=== PATIENT | male | born 1965 | race Caucasian/White ===

== ENCOUNTER 2017-02-08 10:25 | Emergency (ER) | payer MEDICARE, OTHER ==
[2017-02-08] MEDS ORDERED: Aspirin Low Dose CHEW TAB* 81 MG PO ONE (10:42)
--- NOTE | 2017-02-08 10:48 | UC ---
Cardiac HPI - HPI Summary HPI Summary: The patient comes in today for: 1. Chest pain: Onset: 2-3 hours. Palliative/provocative: Noting makes it better or worse. Quality: Sharp, "like something is stuck there." Region: Chest, anterior Severity: "Very bad." Time: Constant. Associated symptoms: Nausea/vomiting: Positive. 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 - Allergy/Home Medications Allergies/Adverse Reactions: Allergies Allergy/AdvReac Type Severity Reaction Status Date / Time Adhesive Tape Allergy Rash Verified 02/08/17 10:49 Latex Allergy Unknown Verified 02/08/17 10:49 Reaction Details Insulin AdvReac GI Upset Verified 02/08/17 10:49 Lisinopril AdvReac Abdominal Verified 02/08/17 10:49 Pain Statins AdvReac Unknown Verified 02/08/17 10:49 Reaction Details Home Medications: Home Medications NK [No Home Medications Reported] 02/08/17 [History Confirmed 02/08/17] PMH/Surg Hx/FS Hx/Imm Hx Previously Healthy: No Endocrine History: Diabetes, Dyslipidemia Cardiovascular History: Hypertension - Surgical History Surgical History: Yes Surgery Procedure, Year, and Place: ROTATOR CUFF REPAIR, COLONOSCOPY - Family History Known Family History: Positive: Cardiac Disease, Diabetes - Social History Alcohol Use: None Substance Use Type: None Smoking Status (MU): Current Every Day Smoker Type: Cigarettes Amount Used/How Often: 1 PPD Review of Systems Constitutional: Negative Skin: Negative Eyes: Negative ENT: Negative Respiratory: Negative Cardiovascular: Negative Genitourinary: Negative All Other Systems Reviewed And Are Negative: Yes Physical Exam Triage Information Reviewed: Yes Appearance: Ill-Appearing - He keeps his hand against his left anterior chest. Vital Signs Reviewed: Yes Eyes: Positive: Conjunctiva Clear. Negative: Discharge ENT: Positive: Hearing grossly normal. Negative: Pharyngeal erythema, Nasal congestion, Nasal drainage, TM bulging, TM dull, TM red, Tonsillar swelling, Tonsillar exudate Dental: Negative: Gross Decay/Caries @, Dental Fracture @ Neck: Positive: Supple, Nontender, No Lymphadenopathy. Negative: Nuchal Rigidity Respiratory: Positive: Chest non-tender, Lungs clear, No respiratory distress, No accessory muscle use. Negative: Crackles, Wheezing Cardiovascular: Positive: RRR, No Murmur Abdomen Description: Positive: Nontender, No Organomegaly, Soft. Negative: Distended, Guarding Musculoskeletal: Positive: Strength Intact, ROM Intact, No Edema Neurological: Positive: Alert, Muscle Tone Normal Psychological: Positive: Age Appropriate Behavior, Consolable Skin: Negative: rashes, breakdown Diagnostics - Laboratory Diagnostic Studies Completed/Ordered: EGK: Rate: 62. Rhythm: Sinus. Ectopy: NOne. Edwards: 30 degrees, +. Acute changes: ST elevations in II, III, AVF, ST depression V2 - Assessment/Plan Course Of Treatment: Patient had oxygen, 324 mg aspirin, and IV access attempted , unsuccessful. - Clinical Impression Provider Diagnoses: Inferior/RV STEMI - Physician Notifications Discussed Patient Care With: Bolivar Hernandez MD Time Discussed With Above Provider: 10:55 Discharge - Discharge Plan Condition: Stable Disposition: TRANS HIGHER LVL OF CARE FAC
[2017-02-08 10:54] VITALS: BP 150/82
[2017-02-08] MEDS ORDERED: VERAPAMIL 2.5 MG/ML 4 ML VIAL ONE (11:10)
[2017-02-08] MEDS ORDERED: Lidocaine 1% INJ* 10 MG/ML 30 ML SDV ONE ×2 (11:10→11:28)
[2017-02-08] MEDS ORDERED: Heparin 2 UNITS/ML IVPREMIX* 3,000 ML IV ONE (11:10)
[2017-02-08] MEDS ORDERED: Midazolam* 1 MG/ML 5 ML VIAL (5 MG) ONE (11:10)
[2017-02-08] MEDS ORDERED: Heparin(*) 1000 UNIT/ML 10 ML VIAL CATH LAB IV ONE (11:10)
[2017-02-08] MEDS ORDERED: nitroGLYCERIN DRIP* 250 ML ONE (11:10)
[2017-02-08] MEDS ORDERED: Iohexol 350 (CONTRAST) 200 ML MDV IV ONE (11:10)
[2017-02-08] MEDS ORDERED: fentaNYL* 50 MCG/ML 2 ML VIAL (100 MCG VIAL) ONE (11:10)
== END 2017-02-08 10:50 | disposition short-term general hospital (02) ==
LOC: UCEAST 10:25
DX: I21.19 ST elevation (STEMI) myocardial infarction involving other coronary artery of inferior wall (principal); E11.8 Type 2 diabetes mellitus with unspecified complications; E78.5 Hyperlipidemia, unspecified; I10 Essential (primary) hypertension; Z72.0 Tobacco use
CPT/HCPCS: 93005; 99214; A9270-GY; G0463; J1644; J2001; J2250; J3010

== ENCOUNTER 2017-02-08 11:14 | Inpatient (IN) | payer MEDICARE, OTHER ==
[2017-02-08] MEDS ORDERED: fentaNYL* 50 MCG/ML 2 ML VIAL (100 MCG VIAL) ONE (11:39)
[2017-02-08] MEDS ORDERED: Iohexol 350 (CONTRAST) 200 ML MDV IV ONE (12:00)
[2017-02-08 12:25] LABS: Hematocrit 52 % (42-52); Hemoglobin 17.1 g/dl (14.0-18.0); Mean Corpuscular HGB Conc 33 g/dl (31-36); Mean Corpuscular Hemoglobin 27 pg (27-31); Mean Corpuscular Volume 82 fL (80-94); Mean Platelet Volume 11 um3 (7.4-10.4); Red Cell Distribution Width 14 % (10.5-15); White Blood Count 9.2 10^3/ul (3.5-10.8)
[2017-02-08 12:37] LABS: Albumin 3.9 g/dL (3.2-5.2); BUN/Creatinine Ratio 17.6 (8-20); Calcium 8.7 mg/dL (8.6-10.3); EGFR African American 142.8 (>60); EGFR Non-African American 111.1 (>60); Globulin 2.8 g/dL (2-4); Potassium 4.5 mmol/L (3.5-5.0); Total Bilirubin 0.4 mg/dL (0.2-1.0); Total Protein 6.7 g/dL (6.4-8.9)
[2017-02-08 12:42] LABS: Troponin I 0.23 ng/mL (<0.04)
[2017-02-08] MEDS ORDERED: Nitroglycerin TAB 0.4 MG* 0.4 MG TAB SL PRN (13:47)
[2017-02-08] MEDS ORDERED: Acetaminophen TAB* 325 MG PO PRN (13:56)
[2017-02-08] MEDS ORDERED: Zolpidem TAB* 5 MG PO PRN (13:56)
[2017-02-08] MEDS ORDERED: Ticagrelor* 90 MG TAB PO ONE (13:56)
[2017-02-08] MEDS ORDERED: Metoprolol Tartrate TAB* 25 MG PO SCH (14:00)
[2017-02-08] MEDS ORDERED: NS 0.9% 1000 ML* 1,000 ML IV SCH (14:00)
[2017-02-08] MEDS ORDERED: Dextrose 50% Syringe 50 ML* 25 GM/50 ML SYRINGE IV PUSH PRN (16:16)
[2017-02-08] MEDS: Metoprolol Tartrate TAB* 25 MG PO SCH (16:43)
--- NOTE | 2017-02-08 17:34 | HP ---
CC: Dr. Henderson; Dr. Cardozo HISTORY AND PHYSICAL: DATE OF ADMISSION: 02/08/17 PRIMARY CARE PHYSICIAN: Dr. Henderson. HISTORY OF PRESENT ILLNESS: A 51-year-old uncontrolled diabetic, presenting to [facility] care with an acute inferior wall ST elevation infarct. He is fairly knowledgeable about his medical history. He relates that he is intolerant of all insul ins because of what I would consider fairly atypical side effect such as GI upset and GI symptoms. He also relates that he is unable to take metformin or glipizide because he is unable to walk within a week of taking them. He relates that Dr. Henderson has referred him to a diabetic specialist in [facility], but he has not seen him yet. He has been on no medical management for his diabetes, typically ru ns blood sugars in the 300s or higher. He and his are under the impression that there are appa rently no medical options for treatment of his diabetes. He has no previous cardiac history. He is a smoker with obesity and hyperlipidemia. This morning, he started to have severe chest discomfort, presented to urgent care where he was found to have an a cute inferior wall ST elevation infarct by EKG at 1037 hours where he has sinus rhythm with a rate o f 62, incomplete right bundle-branch block, ST elevation in [address] depression in 1 and aV L, as well as V2 through V6. Previous EKG, 08/07/11, showed only a nonspecific IVCD. He was kaz t directly to the dental laboratory assistant as an ER bypass STEMI patient and underwent emergent catheterization. PAST MEDICAL HISTORY: 1. Obesity. 2. Diabetes, apparently uncontrolled. 3. Dyslipidemia. 4. Tobacco use. 5. Obstructive sleep apnea. HOME MEDICATIONS: None. ALLERGIES: Reportedly ADHESIVE TAPE, LASIX, ALL INSULINS, LISINOPRIL, and STATINS, although he reca lls taking only Lipitor and no others. FAMILY HISTORY: Positive for premature coronary disease. SOCIAL HISTORY: He is . He smokes a pack per day. REVIEW OF SYSTEMS: General: No fever. No weight loss. 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 GI: He d enies any history of GI bleeding. Does not take aspirin regularly. Circulatory: No claudication. PHYSICAL EXAMINATION VITAL SIGNS: Initial dental laboratory assistant BP 86/42 with a repeat 151/96. Heart rate 60s, sinus rhythm. No ect opy. HEENT: Unremarkable without xanthelasma. NECK: JVP unremarkable. No thyromegaly. Trachea midline. No carotid bruits. LUNGS: Clear laterally to auscultation. No rales. No wheezes. No rhonchi. HEART: [place] and RV not palpable. Normal heart sounds. No gallop, murmur, or rub. ABDOMEN: Obese, nontender. Normal bowel sounds. I cannot feel the aorta. Femoral pulses 2+. He h as no abdominal bruit or femoral bruits. EXTREMITIES: Radial pulses 2+. Pedal pulses 2+. He has no cyanosis, clubbing, or edema. SKIN: Warm and perfused. LABORATORY DATA: During the catheterization, labs returned with unremarkable CBC, normal creatinin e of 0.74 with normal electrolytes, random blood sugar high at 366. First troponin 0.23. Alkaline p hosphatase elevated at 117 with normal SGOT and SGPT. LDL high at 157. BNP 36. IMPRESSION: 1. Acute inferior wall ST elevation infarct. He underwent emergent catheterization as an ER bypass patient. 2. Diabetes, uncontrolled and untreated. I find his history fairly bizarre. The alleged allergic symptoms to numerous INSULINS are quite atypical. His side effects to metformin and glipizide are a lso quite unusual. He is not on aspirin or any other medicines. It seems very unlikely to me that he has not been recommended to take aspirin. I wonder if there is a large component of medication n oncompliance here. In any case, I will ask the hospitalist service to help with management of his u ncontrolled hyperglycemia at least while he is in the hospital. 3. Dyslipidemia: Even though he claims to have an allergy to STATIN, he does not recall being on Z ocor. He is willing to try it. We will start with 20 mg daily. 4. Tobacco use: We will encourage him not to continue smoking. 5. Obesity. [id number]/[facility] #: [id number]
--- NOTE | 2017-02-08 18:07 | CONS ---
CC: Dr. Henderson; Dr. Cardozo * CONSULTATION REPORT: DATE OF CONSULT: 02/08/17 PRIMARY CARE PROVIDER: Dr. Henderson. PHYSICIAN REQUESTING CONSULT: Dr. Cardozo from Interventional Cardiology. CHIEF COMPLAINT: Chest pain. HISTORY OF PRESENT ILLNESS: Mr. Watson is a 51-year-old male with a history of obesity, diabetes, hypertension, dyslipidemia, who was brought in as ST elevation [place] from [facility]. The patient had an emergent cardiac catheterization performed and 2 stents placed at critical lesion into the circumflex artery. Postoperatively, the patient is doing well. He has a history of diabetes for which he has not been taking any medications and no INSULIN stating that he is ALLERGIC to all the medications previously tried including GLIPIZIDE, METFORMIN , and "ALL KINDS OF INSULIN." Dr. Cardozo has asked Medicine to see the patient in consultation in regards to diabetic management. PAST MEDICAL HISTORY: 1. Obesity. 2. Diabetes type 2. 3. Hypertension. 4. Dyslipidemia. 5. Six surgeries in the right shoulder. 6. History of peripheral neuropathy. The patient stated that his ambulation was very poor several years ago and he had been undergoing rehabilitation and currently, he is able to walk without any walker. CURRENT MEDICATIONS: None. The patient has been not taking any of his regular medications for the past 6 months due to side effects. ALLERGIES: Include ADHESIVE TAPE which causes rash. LATEX, also rash. INSULIN , GI upset. LISINOPRIL, GI upset. STATINS, GI upset. FAMILY HISTORY: Positive for father who in his 80s from prostate cancer. Mother of disseminated cancer of unknown primary. SOCIAL HISTORY: The patient has smoked 1 pack per day ever since he turned 14. He denies any alcohol use. His surrogate is his , Nithya. The patient currently is in disability due to problems with peripheral neuropathy and right shoulder problems. REVIEW OF SYSTEMS: Please see history of present illness. The patient stated that his sugars had been in the 400 range ever since he quit taking his insulin. The patient stated that in the past he would have severe abdominal cramps with METFORMIN, GLIPIZIDE, and INSULIN and his doctor told him to stop all the medications. He also stated that he has stomach cramps with LISINOPRIL and that was discontinued also. He also complains of polydipsia and polyuria in the past 6 months. He has not had a chest pain for the past several months, but today, in the morning, he developed severe substernal chest pain that lasted several hours until his cardiac catheterization was performed earlier on today. He states that he has good exercise tolerance and he does a lot of yard work. He denies any dyspnea on exertion or chest pain with exertion prior to the cardiac catheterization. He does have history of problems with the right shoulder after multiple surgeries. All the remaining 14 systems were reviewed with the patient and were otherwise negative. PHYSICAL EXAM: Blood pressure 118/80, heart rate of 67 and regular, respiratory rate 20, oxygen saturation 99% on room air, and temperature of 97.5. General: The patient is a pleasant 51-year-old male with a BMI of 38.5 kg/sq. m. The patient is in no acute distress. Alert, awake, and oriented x3. HEENT: Head: Atraumatic, normocephalic. Eyes: Pupils equal, reactive to light and accommodation. Oropharynx clear. Mucosa moist. Neck: Supple. No JVD, no bruit bilaterally. Cardiovascular: Regular rate and rhythm. No murmur. Respiratory: Clear to auscultation bilaterally. Abdomen: Protuberant , soft, nontender. Bowel sounds present in all 4 quadrants. Extremities: There is no edema. Pulses are +2 bilaterally. No clubbing or cyanosis. On evaluation of the skin, the patient's puncture site from the right radial access for his cardiac catheterization is covered with Tegaderm and there is no evidence of hematoma. Neuro Evaluation: Speech clear. Cranial nerves II through XII grossly intact. Motor strength is 5/5 bilaterally. DIAGNOSTIC STUDIES/LAB DATA: Show a white blood cell count of 9.2, hemoglobin 17.1, hematocrit of 52, MCV of 82, and platelets of 154. Sodium 135, potassium 4.5, chloride 102, carbon dioxide 23, BUN 13, creatinine 0.74. Liver function tests showed alkaline phosphatase of 117, ALT of 35, AST of 24. The patient's troponin was 0.23. LDL was 157. The patient's EKG performed prior to cardiac catheterization showed ST elevation [place] in the inferior wall. ASSESSMENT AND PLAN: A 51-year-old male status post ST elevation myocardial infarction with 2 stents into the circumflex artery. The patient currently is placed on aspirin and Brilinta. The treatment is going to be continued as per Interventional Cardiology. In regards to the patient's diabetes: At this point, I believe that METFORMIN could cause GI upset and diarrhea. At this point, the most appropriate in the clinical setting in this patient with post catheterization with sugars in the 300s is to start the patient on insulin. I had a long discussion with the patient about how low is the possibility of the patient having GI upset from injections of insulin. At this point, the patient is agreeing to trying Lantus and insulin lispro sliding scale. I will ask diabetic education and nutrition to see the patient in consultation. For DVT prophylaxis, I will defer to the primary service. The patient is at low risk. In regards to history of dyslipidemia, the patient has history of most likely neuropathy or maybe myopathy due to STATINS in the past. At this point, he was not going to be placed on a STATIN unless the primary cardiology service decides to do so. The patient's code status is full and the patient's surrogate is his . TIME SPENT: Approximately 50 minutes was spent on consultation of this patient , more than half that time was spent [id number] with the patient during the interview and physical exam. [id number]/[facility] #: [id number] PANCHO
[2017-02-08] MEDS: Insulin LISPRO* 1 UNITS UNIT SUBCUT SCH ×2 (18:14→21:25)
[2017-02-08] MEDS: Insulin GLARGINE(*) 1 UNITS UNIT SUBCUT SCH (18:14)
[2017-02-08] MEDS ORDERED: LORazepam TAB(*) 1 MG ONE (19:21)
[2017-02-08] MEDS ORDERED: LORazepam TAB(*) 1 MG PO ONE (20:00)
[2017-02-08] MEDS ORDERED: Ondansetron INJ* 2 MG/ML VIAL ONE (21:23)
[2017-02-08] MEDS: Ticagrelor* 90 MG TAB PO SCH (21:25)
[2017-02-08] MEDS ORDERED: Ondansetron INJ* 2 MG/ML VIAL IV PRN (21:26)
[2017-02-08] MEDS ORDERED: Atropine SYRINGE* 0.1 MG/ML 10 ML SYRINGE (1 MG) ONE (22:54)
[2017-02-09] MEDS: Metoprolol Tartrate TAB* 25 MG PO SCH ×2 (00:18→08:49)
[2017-02-09 05:52] LABS: BUN/Creatinine Ratio 25.4 (8-20); EGFR Non-African American 133.7 (>60); Potassium 4.3 mmol/L (3.5-5.0)
[2017-02-09] MEDS: Aspirin Low Dose CHEW TAB* 81 MG PO SCH (08:48)
[2017-02-09] MEDS: Insulin LISPRO* 1 UNITS UNIT SUBCUT SCH ×4 (08:48→20:35)
[2017-02-09] MEDS: Ticagrelor* 90 MG TAB PO SCH ×2 (08:49→19:50)
[2017-02-09] MEDS ORDERED: NS 0.9% 1000 ML* 1,000 ML IV SCH (09:00)
[2017-02-09] MEDS ORDERED: Insulin GLARGINE(*) 1 UNITS UNIT SUBCUT ONE (09:00)
--- NOTE | 2017-02-09 09:37 | ECHO ---
Patient: ROSI MONTALVO [facility] Rec#: [id number] : 1965 Date: 02/09/2017 Age: 51y Height: 170.2 cm / 67.0 in Weight: 115.7 kg / 255.0 lbs Sex: M BSA: 2.2 Room#: ICU 11 Admit Date#: 02/08/2017 Type: Inpatient Referring: Kristy Cardozo MD Reading: Dylan Godinez MD Cabinet And Trim Installer: Trudi Mullins RN RDCS CC: Cam Henderson MD Transthoracic Echocardiogram Indication: STEMI, S/P PCI BP: 117/56 HR: 50 Rhythm: Bradycardia Findings History: DM, HLD, obesity, CHERIE, smoker Technical Comments: The study is technically limited due to patient body habitus. The study is technically limited due to the patient's smoking history. Completed at 0850. Left Ventricle: The left ventricular chamber size is normal. Mild concentric left ventricular hypertrophy is observed. There is increased basal septal hypertrophy noted without evidence of an increased gradient across the left ventricular outflow tract. There is a focal wall motion abnormality present. There is mild to moderately decreased left ventricular systolic function. The estimated ejection fraction is 40-45%. closer to 45%. Normal left ventricular diastolic filling is observed. The basal inferolateral, basal inferior, basal inferoseptal, mid inferior, mid inferoseptal, and apical inferior wall segments are hypokinetic (score 2). Overall wallmotion score index is 1.38 Left Atrium: The left atrial chamber size is normal. Right Ventricle: The right ventricle is mildly dilated. The right ventricular global systolic function is mildly reduced. Right Atrium: The right atrial cavity size is normal. Aortic Valve: The aortic valve is trileaflet. The aortic valve leaflets are mildly thickened. There is no evidence of aortic regurgitation. There is no evidence of aortic stenosis. Mitral Valve: The mitral valve leaflets are mildly thickened. There is mild mitral regurgitation. There is no evidence of mitral stenosis. Tricuspid Valve: The tricuspid valve leaflets are normal. There is trace to mild tricuspid regurgitation. No pulmonary hypertension is noted. There is no tricuspid stenosis. Pulmonic Valve: The pulmonic valve appears normal. There is a trace pulmonic regurgitation. There is no pulmonic stenosis. Pericardium: There is no significant pericardial effusion. A pericardial fat pad is visualized. Aorta: There is mild dilatation of the ascending aorta. There is no dilatation of the aortic arch. There is no dilation of the aortic root. Pulmonary Artery: The main pulmonary artery appears normal. Venous: The venous system is not well visualized. The inferior vena cava is not visualized. Summary: There was not any prior study for comparison. Conclusions Mild concentric left ventricular hypertrophy is observed. There is increased basal septal hypertrophy noted without evidence of an increased gradient across the left ventricular outflow tract. The estimated ejection fraction is 40-45%, closer to 45%. The right ventricle is mildly dilated. The right ventricular global systolic function is mildly reduced. There is mild mitral regurgitation. There is trace to mild tricuspid regurgitation. Measurements Name Value Normal Range RAd ISD 4CH 5.2 cm (3.4 - 4.9) RA (A4C)W 4 cm (2.9 - 4.6) IVSd (2D) 1.4 cm (0.6 - 1) LVPWd (2D) 1.1 cm (0.6 - 1) LVIDd (2D) 4.6 cm (3.6 - 5.4) LVIDs (2D) 3.5 cm - LV FS (2D) 23 % (25 - 45) Aortic Annulus 2.3 cm (1.4 - 2.6) Ao root diameter (2D) 2.9 cm (2.1 - 3.5) Ascending Ao 3.6 cm (2.1 - 3.4) Aortic arch 3 cm (1.8 - 3.4) LA dimension (AP) 2D 3.9 cm (2.3 - 3.8) LAd ISD 4CH 4.8 cm (2.9 - 5.3) LA ISD 4CH W 3.9 cm (2.5 - 4.5) Name Value Normal Range LA ESV SP 4CH (A/L) 52 ml - LA ESV SP 2CH (A/L) 59 ml - LA ESV BP (A/L) 57 ml - LA ESV BP (A/L) index 25.5 ml/m2 - LA ESV SP 4CH (MOD) 45 ml - LA ESV SP 2CH (MOD) 57 ml - Name Value Normal Range MV E-wave Vmax 0.94 m/sec - MV deceleration time 185 msec - MV A-wave Vmax 0.66 m/sec - MV E:A ratio 1.4 ratio - LV septal e' Vmax 0.08 m/sec - LV lateral e' Vmax 0.08 m/sec - LV E:e' septal ratio 11.8 ratio - LV E:e' lateral ratio 11.8 ratio - Name Value Normal Range AV Vmax 1.7 m/sec - AV VTI 32.9 cm - AV peak gradient 12.4 mmHg - AV mean gradient 6.2 mmHg - LVOT Vmax 1.4 m/sec - LVOT VTI 27.6 cm - LVOT peak gradient 7.5 mmHg - LVOT mean gradient 4.4 mmHg - SHELDON Vmax 0.97 m/sec - Name Value Normal Range TR Vmax 2.6 m/sec - TR peak gradient 25 mmHg - RAP 8 mmHg - RVSP 33 mmHg - Name Value Normal Range PV Vmax 0.9 m/sec - Wallmotion BAS Normal BA Normal BAL Normal TAMMIE Hypokinetic BI Hypokinetic BIS Hypokinetic MAS Normal MA Normal MAL Normal MIL Normal [place] Hypokinetic MIS Hypokinetic Normal AA Normal AL Normal AI Hypokinetic APEX Normal
--- NOTE | 2017-02-09 14:45 | PN ---
Subjective Date of Service: 02/09/17 Interval History: pt feels well. no C/p , no GI upset Objective Active Medications: Acetaminophen (Tylenol Tab*) 650 mg PO Q4H PRN PRN Reason: HEADACHE/PAIN Aspirin (Aspirin Low Dose Tab*) 81 mg PO DAILY [facility] Last Admin: 02/09/17 08:48 Dose: 81 mg Dextrose (D50w Syringe 50 Ml*) 12.5 gm IV PUSH .FOR FS < 60 - SS PRN PRN Reason: FS < 60 Insulin Glargine (Lantus(*)) 10 units SUBCUT Q24H [facility] Last Admin: 02/08/17 18:14 Dose: 10 units Insulin Human Lispro (Humalog*) 0 units SUBCUT FS ACHS ICU [facility] PRN Reason: Protocol Last Admin: 02/09/17 12:00 Dose: 6 units Metoprolol Tartrate (Lopressor Tab*) 25 mg PO BID [facility] Nitroglycerin (Nitroglycerin Tab 0.4 Mg*) 0.4 mg SL Q5M PRN PRN Reason: ANGINA Ondansetron HCl (Zofran Inj*) 4 mg IV Q4H PRN PRN Reason: NAUSEA Simvastatin (Zocor(Nf)) 20 mg PO DAILY [facility] Ticagrelor (Brilinta*) 90 mg PO BID [facility] Last Admin: 02/09/17 08:49 Dose: 90 mg Zolpidem Tartrate (Ambien Tab*) 5 mg PO BEDTIME PRN PRN Reason: SLEEP Vital Signs 02/08/17 02/08/17 02/08/17 14:45 15:00 15:15 Temperature Pulse Rate 69 58 59 Respiratory 17 16 17 Rate Blood Pressure 144/89 125/85 132/81 (mmHg) O2 Sat by Pulse 95 94 93 Oximetry 02/08/17 02/08/17 02/08/17 15:30 15:45 15:52 Temperature 97.5 F Pulse Rate 60 64 Respiratory 17 18 Rate Blood Pressure 123/90 120/85 (mmHg) O2 Sat by Pulse 95 94 Oximetry 02/08/17 02/08/17 02/08/17 16:00 16:15 16:30 Temperature Pulse Rate 66 62 68 Respiratory 18 17 20 Rate Blood Pressure 132/81 132/85 118/80 (mmHg) O2 Sat by Pulse 96 94 95 Oximetry 0602/08/17 02/08/17 16:40 16:45 17:00 Temperature Pulse Rate 58 57 Respiratory 18 16 16 Rate Blood Pressure 114/84 (mmHg) O2 Sat by Pulse 94 94 Oximetry 02/08/17 02/08/17 02/08/17 17:15 17:30 17:45 Temperature Pulse Rate 54 69 54 Respiratory 17 21 15 Rate Blood Pressure 107/71 118/88 105/78 (mmHg) O2 Sat by Pulse 94 96 95 Oximetry 02/08/17 02/08/17 02/08/17 18:00 18:15 18:45 Temperature Pulse Rate 68 54 41 Respiratory 16 16 17 Rate Blood Pressure 109/78 109/71 103/65 (mmHg) O2 Sat by Pulse 96 95 95 Oximetry 02/08/17 02/08/17 02/08/17 19:00 19:09 19:15 Temperature Pulse Rate 63 47 50 Respiratory 18 14 15 Rate Blood Pressure 106/63 111/64 114/64 (mmHg) O2 Sat by Pulse 95 96 96 Oximetry 02/08/17 02/08/17 02/08/17 19:30 19:31 19:32 Temperature 97.0 F Pulse Rate 55 Respiratory 16 14 14 Rate Blood Pressure 109/67 (mmHg) O2 Sat by Pulse 96 Oximetry 02/08/17 02/08/17 02/08/17 19:45 20:00 20:34 Temperature Pulse Rate 53 49 47 Respiratory 19 17 11 Rate Blood Pressure 113/58 109/79 101/61 (mmHg) O2 Sat by Pulse 95 97 99 Oximetry 02/08/17 02/08/17 02/08/17 20:45 21:00 21:15 Temperature Pulse Rate 64 71 51 Respiratory 17 15 17 Rate Blood Pressure 113/73 132/73 121/74 (mmHg) O2 Sat by Pulse 99 98 97 Oximetry 02/08/17 02/08/17 02/08/17 21:30 21:45 22:00 Temperature Pulse Rate 46 51 49 Respiratory 17 17 17 Rate Blood Pressure 109/68 118/79 120/39 (mmHg) O2 Sat by Pulse 98 97 96 Oximetry 02/08/17 02/08/17 02/08/17 22:17 22:30 22:45 Temperature Pulse Rate 52 44 47 Respiratory 16 16 16 Rate Blood Pressure 119/79 104/71 84/50 (mmHg) O2 Sat by Pulse 97 98 97 Oximetry 02/08/17 02/08/17 02/08/17 22:49 22:51 23:00 Temperature Pulse Rate 48 42 49 Respiratory 18 17 17 Rate Blood Pressure 82/53 110/70 118/69 (mmHg) O2 Sat by Pulse 98 98 98 Oximetry 02/08/17 02/08/17 02/08/17 23:15 23:24 23:30 Temperature Pulse Rate 47 45 47 Respiratory 15 15 14 Rate Blood Pressure 112/78 112/73 (mmHg) O2 Sat by Pulse 97 98 98 Oximetry 02/08/17 02/08/17 02/09/17 23:45 23:48 00:00 Temperature 97.8 F Pulse Rate 38 51 Respiratory 15 14 Rate Blood Pressure 112/73 (mmHg) O2 Sat by Pulse 96 99 Oximetry 02/09/17 02/09/17 02/09/17 00:12 00:15 00:30 Temperature Pulse Rate 56 44 46 Respiratory 17 16 16 Rate Blood Pressure 96/52 99/63 114/70 (mmHg) O2 Sat by Pulse 99 99 98 Oximetry 02/09/17 02/09/17 02/09/17 00:45 01:00 01:15 Temperature Pulse Rate 45 45 45 Respiratory 16 17 12 Rate Blood Pressure 116/64 109/65 108/72 (mmHg) O2 Sat by Pulse 98 98 99 Oximetry 02/09/17 02/09/17 02/09/17 01:30 01:45 02:00 Temperature Pulse Rate 45 52 47 Respiratory 16 17 13 Rate Blood Pressure 118/68 100/73 113/67 (mmHg) O2 Sat by Pulse 98 99 97 Oximetry 02/09/17 02/09/17 02/09/17 02:30 03:00 03:30 Temperature Pulse Rate 43 48 47 Respiratory 15 10 9 Rate Blood Pressure 112/75 101/65 (mmHg) O2 Sat by Pulse 98 98 98 Oximetry 02/09/17 02/09/17 02/09/17 04:00 04:02 04:30 Temperature 97.7 F Pulse Rate 47 Respiratory 10 15 Rate Blood Pressure 100/68 103/72 (mmHg) O2 Sat by Pulse 96 Oximetry 02/09/17 02/09/17 02/09/17 05:00 05:30 06:00 Temperature Pulse Rate 49 47 47 Respiratory 13 11 13 Rate Blood Pressure 110/60 114/78 117/56 (mmHg) O2 Sat by Pulse 96 95 96 Oximetry 02/09/17 02/09/17 02/09/17 06:30 07:00 07:30 Temperature Pulse Rate 49 51 47 Respiratory 12 15 10 Rate Blood Pressure 99/67 100/70 119/59 (mmHg) O2 Sat by Pulse 96 96 95 Oximetry 02/09/17 02/09/17 02/09/17 07:40 08:00 08:30 Temperature 98.3 F Pulse Rate 50 52 Respiratory 18 19 Rate Blood Pressure 106/66 112/78 (mmHg) O2 Sat by Pulse 94 95 Oximetry 02/09/17 02/09/17 09:00 11:29 Temperature 98.1 F Pulse Rate Respiratory 16 Rate Blood Pressure (mmHg) O2 Sat by Pulse Oximetry Oxygen Devices in Use Now: None Appearance: 51 yo obsese M in nAd, aAOx3 Eyes: No Scleral Icterus, PERRLA Ears/Nose/Mouth/Throat: NL Teeth, Lips, Gums, Mucous Membranes Moist Neck: NL Appearance and Movements; NL JVP, Trachea Midline Respiratory: Symmetrical Chest Expansion and Respiratory Effort, Clear to Auscultation Cardiovascular: NL Sounds; No Murmurs; No JVD, RRR Abdominal: NL Sounds; No Tenderness; No Distention, No Hepatosplenomegaly Lymphatic: No Cervical Adenopathy Extremities: No Edema, No Clubbing, Cyanosis Skin: No Rash or Ulcers, No Nodules or Sclerosis Neurological: Alert and Oriented x 3, NL Muscle Strength and Tone Result Diagrams: 02/08/17 11:30 02/09/17 05:17 Assess/Plan/Problems-Billing Assessment: 51 yo M with h/o untreated HTN, DM, dyslipidemia, h/o CHERIE on CPAP presents with STEMI (s/p stent in circ), consult for DM management from Dr. Cardozo - Patient Problems (1) STEMI (ST elevation myocardial infarction) Comment: On ASA and Brilinta As per Dr. Cardozo (2) CHERIE (obstructive sleep apnea) Comment: Not really compliant with CPAP. HR down to 30's at night due to CHERIE (3) DM2 (diabetes mellitus, type 2) Comment: DM education and nutrition ordered. Pt was convinced that his GI symptoms in the past when on glipizide/metformin / insulin were due to ALL the meds, that's why he stopped them all 6 months ago. Education about insulin need and use given. Pt was started on Lantus on Lispro with good reults. will cont Lantus titration. HbA1C 12 (4) Dyslipidemia Comment: LDL at 157 Pt is allergic to statin Tx as per primary service (5) DVT prophylaxis Comment: heparin sc (6) Elevated CPK Comment: suspect elevation due to AMI will tx with IVF, recheck in AM Status and Disposition: inpatient
[2017-02-09] MEDS: Insulin GLARGINE(*) 1 UNITS UNIT SUBCUT SCH (18:09)
[2017-02-09] MEDS ORDERED: Metoprolol Tartrate TAB* 25 MG PO SCH (21:00)
[2017-02-09] MEDS: Heparin VIAL(*) 5000 UNITS/ML VIAL (FIVE THOUSAND) SUBCUT SCH (21:38)
[2017-02-10] MEDS: Heparin VIAL(*) 5000 UNITS/ML VIAL (FIVE THOUSAND) SUBCUT SCH ×3 (04:58→21:22)
[2017-02-10 05:26] LABS: Calcium 8.7 mg/dL (8.6-10.3); EGFR Non-African American 141.5 (>60); Potassium 3.7 mmol/L (3.5-5.0)
[2017-02-10] MEDS ORDERED: Metoprolol Tartrate TAB* 25 MG PO SCH (09:00)
[2017-02-10] MEDS ORDERED: Magnesium CITRATE* 300 ML BTL PO ONE (09:11)
[2017-02-10] MEDS: Metoprolol Tartrate TAB* 25 MG PO SCH ×2 (09:46→20:13)
[2017-02-10] MEDS: CMC:Simvastatin TAB(NF) 20 MG TAB PO SCH (09:47)
[2017-02-10] MEDS: Aspirin Low Dose CHEW TAB* 81 MG PO SCH (09:47)
[2017-02-10] MEDS: Ticagrelor* 90 MG TAB PO SCH ×2 (09:47→20:12)
[2017-02-10] MEDS: Insulin LISPRO* 1 UNITS UNIT SUBCUT SCH ×4 (09:49→20:19)
--- NOTE | 2017-02-10 12:40 | PN ---
Subjective Date of Service: 02/10/17 Interval History: Pt denies CP/SOB, has not had a BM since admission Objective Active Medications: Acetaminophen (Tylenol Tab*) 650 mg PO Q4H PRN PRN Reason: HEADACHE/PAIN Aspirin (Aspirin Low Dose Tab*) 81 mg PO DAILY [facility] Last Admin: 02/10/17 09:47 Dose: 81 mg Dextrose (D50w Syringe 50 Ml*) 12.5 gm IV PUSH .FOR FS < 60 - SS PRN PRN Reason: FS < 60 Docusate Sodium (Colace Cap*) 100 mg PO BID [facility] Heparin Sodium (Porcine) (Heparin Vial(*)) 5,000 units SUBCUT Q8HR [facility] Last Admin: 02/10/17 04:58 Dose: 5,000 units Insulin Glargine (Lantus(*)) 25 units SUBCUT Q24H [facility] Insulin Human Lispro (Humalog*) 0 units SUBCUT FS ACHS ICU [facility] PRN Reason: Protocol Last Admin: 02/10/17 09:49 Dose: 4 units Metoprolol Tartrate (Lopressor Tab*) 12.5 mg PO Q12HR [facility] Last Admin: 02/10/17 09:46 Dose: 12.5 mg Nitroglycerin (Nitroglycerin Tab 0.4 Mg*) 0.4 mg SL Q5M PRN PRN Reason: ANGINA Ondansetron HCl (Zofran Inj*) 4 mg IV Q4H PRN PRN Reason: NAUSEA Simvastatin (Zocor(Nf)) 20 mg PO DAILY [facility] Last Admin: 02/10/17 09:47 Dose: 20 mg Ticagrelor (Brilinta*) 90 mg PO BID [facility] Last Admin: 02/10/17 09:47 Dose: 90 mg Zolpidem Tartrate (Ambien Tab*) 5 mg PO BEDTIME PRN PRN Reason: SLEEP Vital Signs 02/09/17 02/09/17 02/09/17 13:00 13:30 14:00 Temperature Pulse Rate 59 49 62 Respiratory 22 16 24 Rate Blood Pressure 109/65 113/78 118/71 (mmHg) O2 Sat by Pulse 96 96 96 Oximetry 02/09/17 02/09/17 02/09/17 14:30 15:00 15:41 Temperature 98.3 F Pulse Rate 49 48 Respiratory 13 11 Rate Blood Pressure 122/77 126/77 (mmHg) O2 Sat by Pulse 96 96 Oximetry 02/09/17 02/09/17 02/09/17 16:40 16:41 18:30 Temperature 98.4 F 98.4 F Pulse Rate 60 60 Respiratory 20 20 18 Rate Blood Pressure 109/68 109/68 (mmHg) O2 Sat by Pulse 99 99 Oximetry 02/09/17 02/09/17 02/09/17 19:36 19:45 22:17 Temperature 98.8 F 98.5 F Pulse Rate 51 55 Respiratory 20 18 18 Rate Blood Pressure 118/70 100/49 (mmHg) O2 Sat by Pulse 96 97 Oximetry 02/09/17 02/10/17 02/10/17 23:41 03:52 07:43 Temperature 98.7 F 99.7 F 98.5 F Pulse Rate 57 60 59 Respiratory 20 16 16 Rate Blood Pressure 106/60 110/68 105/64 (mmHg) O2 Sat by Pulse 96 100 97 Oximetry 02/10/17 02/10/17 07:44 07:47 Temperature Pulse Rate Respiratory 18 18 Rate Blood Pressure (mmHg) O2 Sat by Pulse Oximetry Oxygen Devices in Use Now: None Appearance: 51 yo M in nAD, AAOx3 Eyes: No Scleral Icterus, PERRLA Ears/Nose/Mouth/Throat: NL Teeth, Lips, Gums, Mucous Membranes Moist Neck: NL Appearance and Movements; NL JVP, Trachea Midline Respiratory: Symmetrical Chest Expansion and Respiratory Effort, Clear to Auscultation Cardiovascular: NL Sounds; No Murmurs; No JVD, RRR Abdominal: NL Sounds; No Tenderness; No Distention Lymphatic: No Cervical Adenopathy Extremities: No Edema, No Clubbing, Cyanosis Skin: No Rash or Ulcers, No Nodules or Sclerosis Neurological: Alert and Oriented x 3, NL Muscle Strength and Tone Result Diagrams: 02/08/17 11:30 02/10/17 04:56 Assess/Plan/Problems-Billing Assessment: 51 yo M with h/o untreated HTN, DM, dyslipidemia, h/o CHERIE on CPAP presents with STEMI (s/p stent in circ), consult for DM management from Dr. Cardozo - Patient Problems (1) STEMI (ST elevation myocardial infarction) Comment: On ASA and Brilinta As per Dr. Cardozo (2) CHERIE (obstructive sleep apnea) Comment: Not really compliant with CPAP, cannot tolerate his mask. Recommended outpatient sleep study re-evaluation. (3) DM2 (diabetes mellitus, type 2) Comment: DM education and nutrition ordered. Pt was convinced that his GI symptoms in the past when on glipizide/metformin / insulin were due to ALL the meds, that's why he stopped them all 6 months ago. HbA1C 12 cont titrating Lantus dn ISS. Pt has a glucometer and knows how to use insulin (4) Dyslipidemia Comment: LDL at 157 Pt is allergic to statin Tx as per primary service (5) DVT prophylaxis Comment: heparin sc (6) Elevated CPK Comment: suspect elevation due to AMI resolving Status and Disposition: inpatient
[2017-02-10] MEDS ORDERED: Insulin GLARGINE(*) 1 UNITS UNIT SUBCUT SCH ×2 (16:00)
--- NOTE | 2017-02-10 17:40 | CONSULT ---
Subjective Reason for Visit: Type 2 diabetes with hyperglycemia - diabetes education History Of Present Illness: 51 year old male who was admitted for emergent cardiac catheterization following a STEMI. He has poorly controlled type 2 diabetes with a HgbA1C of 12.7%. He reports going off of all of his diabetic medications about 4 months ago due to gastrointestinal pain and discomfort. He states that about 7 different medication and insulin preparations were tried with no success. He also reports that discontinuing Metformin and Glipizide improved his leg pain and mobility. He had started the medically supervised weight loss process at [place] in preparation for bariatric surgery although he has not met with a bariatric surgeon yet. He has had basic diabetes education in the past and has a glucometer at home. He feels comfortable doing insulin injections and using his glucometer. Patient History Surgical History: Yes Surgery Procedure, Year, and Place: ROTATOR CUFF REPAIR, COLONOSCOPY Preferred/Primary Language: [place] Employed/Unemployed: Unemployed - x 7 years Hx Tobacco Use: Yes Objective Allergies Allergy/AdvReac Type Severity Reaction Status Date / Time Adhesive Tape Allergy Rash Verified 02/08/17 10:49 Latex Allergy Unknown Verified 02/08/17 10:49 Reaction Details Lisinopril AdvReac Abdominal Verified 02/08/17 10:49 Pain Home Medications Medication Instructions Recorded Confirmed Type NK [No Home Medications Reported] 02/08/17 02/09/17 History Hospital Medications: Current Medications Acetaminophen (Tylenol Tab*) 650 mg PO Q4H PRN PRN Reason: HEADACHE/PAIN Aspirin (Aspirin Low Dose Tab*) 81 mg PO DAILY [facility] Last Admin: 02/10/17 09:47 Dose: 81 mg Dextrose (D50w Syringe 50 Ml*) 12.5 gm IV PUSH .FOR FS < 60 - SS PRN PRN Reason: FS < 60 Docusate Sodium (Colace Cap*) 100 mg PO BID [facility] Heparin Sodium (Porcine) (Heparin Vial(*)) 5,000 units SUBCUT Q8HR [facility] Last Admin: 02/10/17 14:08 Dose: 5,000 units Insulin Glargine (Lantus(*)) 25 units SUBCUT Q24H [facility] Insulin Human Lispro (Humalog*) 0 units SUBCUT FS ACHS ICU [facility] PRN Reason: Protocol Last Admin: 02/10/17 17:21 Dose: 2 units Metoprolol Tartrate (Lopressor Tab*) 12.5 mg PO Q12HR [facility] Last Admin: 02/10/17 09:46 Dose: 12.5 mg Nitroglycerin (Nitroglycerin Tab 0.4 Mg*) 0.4 mg SL Q5M PRN PRN Reason: ANGINA Ondansetron HCl (Zofran Inj*) 4 mg IV Q4H PRN PRN Reason: NAUSEA Simvastatin (Zocor(Nf)) 20 mg PO DAILY [facility] Last Admin: 02/10/17 09:47 Dose: 20 mg Ticagrelor (Brilinta*) 90 mg PO BID [facility] Last Admin: 02/10/17 09:47 Dose: 90 mg Zolpidem Tartrate (Ambien Tab*) 5 mg PO BEDTIME PRN PRN Reason: SLEEP Lab Data: Sodium 130 mmol/L (133-145) L 02/10/17 04:56 Potassium 3.7 mmol/L (3.5-5.0) 02/10/17 04:56 BUN 12 mg/dL (6-24) 02/10/17 04:56 Creatinine 0.60 mg/dL (0.67-1.17) L 02/10/17 04:56 Hemoglobin A1c 12.7 % (Less than 6.0) H 02/09/17 05:17 Calcium 8.7 mg/dL (8.6-10.3) 02/10/17 04:56 AST 24 U/L (13-39) 02/08/17 11:30 ALT 35 U/L (7-52) 02/08/17 11:30 Vital Signs: Vital Signs 02/10/17 02/10/17 10:55 16:18 Temperature 97.8 F 97.9 F Pulse Rate 62 55 Respiratory 20 Rate Blood Pressure 104/62 93/48 (mmHg) O2 Sat by Pulse 98 98 Oximetry Height: 5 ft 9 in Weight: 251 lb 1.704 oz Body Mass Index (BMI): 37.0 Physical Exam General Appearance: Positive: Alert, Oriented x3 Plan Of Care Patient's Next Step: Patient will be discharged home and will follow up with his PCP for diabetes education and with the weight loss clinic at [facility] for bariatric surgery. Recommend that he consider doing Cardiac Rehabilitation for biweekly monitored exercise sessions. Medication Changes: Reports gastric intolerance to multiple insulin preparations, liraglutide, metformin and glipizide. He also reports leg pain and increased neuropathy with metformin and glipizide. He has been tolerating Insulin Glargine and Lispro during this hospitalization and should be discharged on current dose. Diagnosis: 1. Type 2 diabetes with hyperglycemia 2. Class II obesity 3. Tobacco use disorder 4. Dyslipidemia 5. Obstructive sleep apnea Discharge Plan: Refer to Cardiac Rehabilitation program Will follow up with his PCP regarding diabetes education and metabolic/ bariatric surgery Education Prior Diabetic Education: Yes Goals Goals: According to the [place] [employer], the following are your goals for Hemaglobin A1C, Blood Glucose, Cholesterol and Blood Pressure. Hemaglobin A1C * <7.0% for most * <6.5% for "healthy" * <8.0% for "Less Healthy" A total of 20 minutes was spent with direct patient education and counseling
[2017-02-10] MEDS: Docusate CAP* 100 MG PO SCH (20:13)
[2017-02-11] MEDS: Heparin VIAL(*) 5000 UNITS/ML VIAL (FIVE THOUSAND) SUBCUT SCH (05:54)
[2017-02-11] MEDS: Metoprolol Tartrate TAB* 25 MG PO SCH (08:49)
[2017-02-11] MEDS: Aspirin Low Dose CHEW TAB* 81 MG PO SCH (08:50)
[2017-02-11] MEDS: Insulin LISPRO* 1 UNITS UNIT SUBCUT SCH (08:50)
[2017-02-11] MEDS: Docusate CAP* 100 MG PO SCH (08:50)
[2017-02-11] MEDS: Ticagrelor* 90 MG TAB PO SCH (08:50)
[2017-02-11] MEDS: CMC:Simvastatin TAB(NF) 20 MG TAB PO SCH (08:50)
[2017-02-11 10:19] VITALS: BP 102/78
[2017-02-11] MEDS ORDERED: Insulin GLARGINE(*) 1 UNITS UNIT SUBCUT SCH (16:00)
--- NOTE | 2017-02-12 02:45 | DS ---
CC: Dr. Kristy Cardozo; Dr. Cam Henderson at [facility] in [place] * DISCHARGE SUMMARY: DATE OF ADMISSION: 02/08/17 DATE OF DISCHARGE: 02/11/17 FINAL DIAGNOSIS: Acute inferior wall ST-segment elevation myocardial infarction. SECONDARY DIAGNOSES: Stenotic coronary artery disease, obesity, uncontrolled diabetes on presentation, hyperlipidemia, tobacco use, and obstructive sleep apnea. HISTORY OF PRESENT ILLNESS/HOSPITAL COURSE: The patient is a 51-year-old gentleman, who presented to [facility] on 02/08/17 in the throes of an acute ST-segment elevation inferior wall myocardial infarction. Please refer to Dr. Kristy Cardozo' history and physical for complete details. He was taken emergently to the cardiovascular laboratory where cardiac catheterization revealed the presence of a totally occluded left dominant distal circumflex artery. The patient underwent thrombectomy with placement of overlapping drug- eluting stents with a 2.5 x 28 mm drug-eluting stent overlapped more distally with a 2.5 x 12 mm long drug-eluting stent. The patient's CPK terri to 1010. His EKG demonstrated the presence of Q waves in 3 and aVF with mild residual ST- segment elevation and T-wave inversions in 2, 3, aVF and mild scooping in 1 and aVL on the EKG at the time of discharge. During the course of the hospitalization, the patient underwent a transthoracic echocardiogram on 02/09/17 showing mild concentric left ventricular hypertrophy with question of an increased basal septal hypertrophy without gradient. There was a focal wall motion abnormality with mild to moderately decreased ejection fraction at 40% to 45% felt to be closer to 45% by Dr. Godinez who interpreted the echo. The basal inferolateral, basal inferior, basal inferoseptal, mid inferior and mid inferoseptal, and apical and inferior [place] were hypokinetic. The right ventricle was mildly dilated with mild decreased wall motion. There was mild mitral regurgitation and trace to mild tricuspid regurgitation. Over the course of the hospitalization, we were able to eventually get him started on low-dose beta- blockers with metoprolol tartrate 12.5 mg twice a day. He was on aspirin therapy at 81 mg a day and Brilinta 90 mg twice a day. Consultation was obtained with Dr. Means (hospitalist) for diabetes management and she titrated medical management of diabetes throughout the hospital course and made recommendations on discharge for continuation of medical management. On the day of discharge, the patient was stable in no acute distress, he had been walking the casey for the past 24 to 48 hours without provoking any symptoms. Vital signs reveal blood pressure 100/60, pulse 78, respirations 16, O2 saturation 99% on room air, afebrile. Neck was supple with no increased JVP. Carotid had no significant bruits. Conjunctivae are pink. Sclerae are clear. Mouth revealed moist mucosa. Lungs revealed no accessory muscle usage. There was good excursion. Lungs had no active rales, rhonchi, or wheezes. Heart revealed no visible heaves. No palpable heaves or thrills. Heart sounds in general were somewhat distant due to large chest. There was no significant systolic or diastolic murmur. Abdomen was obese, soft, and nontender. Extremities without clubbing, cyanosis, or gertrudis pitting edema. The right radial artery was well healed. The right groin area was well healed as well from the venous sheath. Good antegrade flow was noted in the right radial artery. Neuro: Patient was alert, oriented with normal mentation. Musculoskeletal: Patient had normal gait. Psychiatric: Patient with normal affect. EKG on the day of discharge showed sinus bradycardia with minimal residual ST segment elevation inferiorly and T-wave inversions with Q waves in 3 and aVF. The patient will be seen in followup for his cardiac care with Dr. Kristy Cardozo per the patient's preference as he was offered the to follow up with the [place] last dipper as well. Dr. Cardozo will see him next week. I stressed that the patient had to make a followup appointment with his primary care physician for ongoing medical management and he will be also following up with his diabetic physician at the [facility] in [place], [place] within the next week to two weeks. The patient had been given a cardiac education booklet in addition to a stent card, and the patient was instructed to bring all of his medications and discharge information to his office visit when he sees Dr. Cardozo next week. [id number]/[facility] #: [id number] PANCHO
== END 2017-02-11 10:52 | disposition home or self-care (01) | DRG 247 ==
LOC: ED 11:14 → ICU 11:39 → MEDTELE 02-09 16:51
PROVIDERS: ADMIT Internal Medicine Cardiovascular Disease; ATTEND Internal Medicine Cardiovascular Disease
PROC: 027035Z Dilation of Coronary Artery, One Artery with Two Drug-eluting Intraluminal Devices, Percutaneous Approach (ICD-10-PCS; 2017-02-08)
PROC: 4A023N7 Measurement of Cardiac Sampling and Pressure, Left Heart, Percutaneous Approach (ICD-10-PCS; 2017-02-08)
PROC: B2111ZZ Fluoroscopy of Multiple Coronary Arteries using Low Osmolar Contrast (ICD-10-PCS; principal; 2017-02-08 10:30)
DX: I21.19 ST elevation (STEMI) myocardial infarction involving other coronary artery of inferior wall (principal); E11.42 Type 2 diabetes mellitus with diabetic polyneuropathy; E11.65 Type 2 diabetes mellitus with hyperglycemia; E78.5 Hyperlipidemia, unspecified; F17.210 Nicotine dependence, cigarettes, uncomplicated; E66.9 Obesity, unspecified; I45.10 Unspecified right bundle-branch block; G47.33 Obstructive sleep apnea (adult) (pediatric); I10 Essential (primary) hypertension; R74.8 Abnormal levels of other serum enzymes; I25.10 Atherosclerotic heart disease of native coronary artery without angina pectoris; I08.1 Rheumatic disorders of both mitral and tricuspid valves; R00.1 Bradycardia, unspecified; Z68.37 Body mass index [BMI] 37.0-37.9, adult; Z88.8 Allergy status to other drugs, medicaments and biological substances; Z91.048 Other nonmedicinal substance allergy status; Z82.49 Family history of ischemic heart disease and other diseases of the circulatory system; Z56.0 Unemployment, unspecified; Z91.040 Latex allergy status; Z80.42 Family history of malignant neoplasm of prostate; Z80.9 Family history of malignant neoplasm, unspecified; Z79.82 Long term (current) use of aspirin; Z79.02 Long term (current) use of antithrombotics/antiplatelets; Z79.4 Long term (current) use of insulin
CPT/HCPCS: 36415; 80048; 80053; 82550; 82553; 82947; 83036; 83721; 83874; 83880; 84484; 85027; 85610; 86850; 86900; 86901; 93005; 93306; 99214; 99406; A9270-GY; C1725; C1757; C1769; C1876; C1887; C9606-LC; G0463; J0461; J1644; J2001; J2250; J2405; J3010

== ENCOUNTER 2017-02-22 13:15 | Emergency (ER) | payer MEDICARE ==
[2017-02-22] MEDS ORDERED: Ketorolac INJ* 30 MG/ML 1 ML VIAL IV PUSH ONE (14:27)
[2017-02-22 14:33] LABS: Hematocrit 48 % (42-52); Hemoglobin 15.9 g/dl (14.0-18.0); Mean Corpuscular HGB Conc 33 g/dl (31-36); Mean Corpuscular Hemoglobin 28 pg (27-31); Mean Corpuscular Volume 84 fL (80-94); Mean Platelet Volume 10 um3 (7.4-10.4); Red Blood Count 5.74 10^6/ul (4.0-5.4); Red Cell Distribution Width 14 % (10.5-15); White Blood Count 9.9 10^3/ul (3.5-10.8)
[2017-02-22 14:49] LABS: Albumin 3.8 g/dL (3.2-5.2); BUN/Creatinine Ratio 14.7 (8-20); C Reactive Protein 33.35 mg/L (< 5.00); Calcium 9.6 mg/dL (8.6-10.3); EGFR African American 140.6 (>60); EGFR Non-African American 109.4 (>60); Globulin 3.5 g/dL (2-4); Potassium 4.4 mmol/L (3.5-5.0); Total Bilirubin 0.4 mg/dL (0.2-1.0); Total Protein 7.3 g/dL (6.4-8.9)
--- NOTE | 2017-02-22 14:55 | ED ---
Lower Extremity - HPI Summary HPI Summary: 51 male presents with complaints of right knee swelling and pain that began ~1 week ago and has worsened today. Patient states it is painful to move due to the pain and swelling but he is able. Denies fever/chills. Had a recent catheterization on 02/08 however denies any catheter pain or issue at right groin where catheter was done. Denies redness. Admits to some warmth. Denies history of gout. PMHx significant for ACS/DC, diabetes and rheumatoid arthritis. Denies numbness/tingling, recent trauma and injury and any other complaints at this time. Patient states the pain is an ache and radiate into his lower calf and leg. Has been taking tylenol, last dose being this am. - History of Current Complaint Chief Complaint: EDExtremityLower Stated Complaint: RT KNEE SWELLING Time Seen by Provider: 02/22/17 13:41 Hx Obtained From: Patient Mechanism Of Injury: Unknown Onset/Duration: Weeks - 1 Severity Initially: Mild Severity Currently: Moderate Pain Intensity: 10 Pain Scale Used: 0-10 Numeric Timing: Constant Location: Is Discrete @ - right knee and lower leg Character Of Pain: Aching Associated Signs And Symptoms: Positive: Swelling, Knee Pain Aggravating Factor(s): Movement Alleviating Factor(s): Rest, Ice Able to Bear Weight: Yes - Allergies/Home Medications Allergies/Adverse Reactions: Allergies Allergy/AdvReac Type Severity Reaction Status Date / Time Adhesive Tape Allergy Rash Verified 02/22/17 13:45 Latex Allergy Unknown Verified 02/22/17 13:45 Reaction Details Lisinopril AdvReac Abdominal Verified 02/22/17 13:45 Pain PMH/Surg Hx/FS Hx/Imm Hx Endocrine/Hematology History: Reports: Hx Anticoagulant Therapy - THIS VISIT, Hx Diabetes Denies: Hx Anemia, Hx Unexplained Bleeding Cardiovascular History: Reports: Hx Angioplasty - STENT X 2 THIS VISIT, Hx Hypercholesterolemia, Hx Hypertension Denies: Hx Aneurysm, Hx Angina, Hx Auto Implanted Cardiovert Defib, Hx Cardiac Arrest, Hx Cardiomegaly, Hx Congenital Heart Disease, Hx Congestive Heart Failure, Hx Coronary Artery Disease, Hx Deep Vein Thrombosis, Hx Embolism , Hx Hypotension, Hx Pacemaker/ICD, Hx Peripheral Vascular Disease, Hx Rheumatic Fever, Hx Syncope, Hx Valvular Heart Disease, Other Cardiovascular Problems/Disorders History: Denies: Hx Renal Disease Sensory History: Denies: Hx Contacts or Glasses, Hx Hearing Aid Opthamlomology History: Denies: Hx Contacts or Glasses - Surgical History Surgery Procedure, Year, and Place: ROTATOR CUFF REPAIR, COLONOSCOPY - Immunization History Date of Tetanus Vaccine: Unk Date of Influenza Vaccine: None Immunizations Up to Date: Yes Infectious Disease History: No Infectious Disease History: Denies: Traveled Outside the [place] in Last 30 Days - Family History Known Family History: Positive: Cardiac Disease, Diabetes - Social History Alcohol Use: None Substance Use Type: Reports: None Hx Tobacco Use: Yes Smoking Status (MU): Current Every Day Smoker Type: Cigarettes Amount Used/How Often: 1 PPD Review of Systems Constitutional: Negative Cardiovascular: Negative Respiratory: Negative Positive: Arthralgia, Myalgia, Edema - right knee Skin: Negative Neurological: Negative All Other Systems Reviewed And Are Negative: Yes Physical Exam Triage Information Reviewed: Yes Vital Signs On Initial Exam: Initial Vitals Temp Pulse Resp BP Pulse Ox 97.0 F 70 16 123/69 99 02/22/17 13:15 02/22/17 13:15 02/22/17 13:15 02/22/17 13:15 02/22/17 13:15 Vital Signs Reviewed: Yes Appearance: Positive: Well-Appearing, No Pain Distress, Well-Nourished Skin: Positive: Warm - warmer to touch at right knee than left knee, Skin Color Reflects Adequate Perfusion, Dry, Other - catheter site appears normal without erythema, discharge or warmth. healed nicely, no tenderness. no sign of pseudoaneurysm.. Negative: Cold, Numb, Soft, Cyanosis @, Weeping Skin/Lesions, Erythema @ Head/Face: Positive: Normal Head/Face Inspection Eyes: Positive: Normal, Conjunctiva Clear Neck: Positive: Supple, Nontender Respiratory/Lung Sounds: Positive: Clear to Auscultation, Breath Sounds Present. Negative: Rales, Rhonchi, Wheezes Cardiovascular: Positive: Normal, RRR, Pulses are Symmetrical in both Upper and Lower Extremities - 2+ pedal b/l. Negative: Murmur, Rub Abdomen Description: Positive: Nontender, Soft Bowel Sounds: Positive: Present Musculoskeletal: Positive: Strength/ROM Intact - however causes pain, some limitation to flex completely due to swelling, Edema Right - right diffuse, moderate, Other - no crepitus, obvious deformity or step off noted. no ecchymosis. no sign of mora's cyst. Negative: Interruption @ Neurological: Positive: Normal, Sensory/Motor Intact - snsation intact and normal b/l, Alert, Oriented to Person Place, Time, CN Intact II-III, Reflexes Intact - not assess on right patellar reflex due to pain, NV Bundle Intact Distally, Normal Gait - causes pain Psychiatric: Positive: Affect/Mood Appropriate AVPU Assessment: Alert - Luis Felipe Coma Scale Coma Scale Total: 15 Diagnostics - Vital Signs Vital Signs Temp Pulse Resp BP Pulse Ox 02/22/17 13:39 97.0 F 70 16 123/69 99 02/22/17 13:15 97.0 F 70 16 123/69 99 - Laboratory Lab Results: Lab Results 02/22/17 02/22/17 02/22/17 Range/Units 14:20 14:20 14:20 WBC 9.9 (3.5-10.8) 10^3/ul RBC 5.74 H (4.0-5.4) 10^6/ul Hgb 15.9 (14.0-18.0) g/dl Hct 48 (42-52) % MCV 84 (80-94) fL MCH 28 (27-31) pg MCHC 33 (31-36) g/dl RDW 14 (10.5-15) % Plt Count 212 (150-450) 10^3/ul MPV 10 (7.4-10.4) um3 Neut % (Auto) 68.4 (38-83) % Lymph % (Auto) 21.1 L (25-47) % [place] % (Auto) 6.0 (1-9) % Eos % (Auto) 3.1 (0-6) % Baso % (Auto) 1.4 (0-2) % Absolute Neuts (auto) 6.8 (1.5-7.7) 10^3/ul Absolute Lymphs (auto) 2.1 (1.0-4.8) 10^3/ul Absolute Monos (auto) 0.6 (0-0.8) 10^3/ul Absolute Eos (auto) 0.3 (0-0.6) 10^3/ul Absolute Basos (auto) 0.1 (0-0.2) 10^3/ul Absolute Nucleated RBC 0.02 10^3/ul Nucleated RBC % 0.2 ESR Pending Sodium 134 (133-145) mmol/L Potassium 4.4 (3.5-5.0) mmol/L Chloride 101 (101-111) mmol/L Carbon Dioxide 29 (22-32) mmol/L Anion Gap 4 (2-11) mmol/L BUN 11 (6-24) mg/dL Creatinine 0.75 (0.67-1.17) mg/dL Est GFR ( Amer) 140.6 (>60) Est GFR (Non-Af Amer) 109.4 (>60) BUN/Creatinine Ratio 14.7 (8-20) Glucose 184 H (70-100) mg/dL Lactic Acid 1.1 (0.5-2.0) mmol/L Calcium 9.6 (8.6-10.3) mg/dL Total Bilirubin 0.40 (0.2-1.0) mg/dL AST 17 (13-39) U/L ALT 26 (7-52) U/L Alkaline Phosphatase 106 H (34-104) U/L C-Reactive Protein 33.35 H (< 5.00) mg/L Total Protein 7.3 (6.4-8.9) g/dL Albumin 3.8 (3.2-5.2) g/dL Globulin 3.5 (2-4) g/dL Albumin/Globulin Ratio 1.1 (1-3) Result Diagrams: 02/22/17 14:20 02/22/17 14:20 Lab Statement: Any lab studies that have been ordered have been reviewed, and results considered in the medical decision making process. - Radiology right knee Xray Interpretation: Positive (See Comments) - 1. OSTEOARTHRITIS. 2. CHONDROCALCINOSIS. 3. JOINT EFFUSION. 4. NO ACUTE OSSEOUS INJURY. IF SYMPTOMS PERSIST, RECOMMEND REPEAT IMAGING. Radiology Interpretation Completed By: Radiologist - Ultrasound No standard instances Ultrasound Interpretation: No Acute Changes Ultrasound Interpretation Completed By: Radiologist Re-Evaluation - Re-Evaluation First Eval Re-Evaluation Time: 15:32 Change: Improved - patient had little relief from toradol. given norco. patient was ready to be d/c however was educated that we needed to observe him and wait for u/s results. Lower Extremity Course/Dx - Course Course Of Treatment: given toradol after discussing with Dr Millan, observed for several hours. X-ray and U/S obtanied. X-ray showed joint effusion. U/S negative for clots. CBC CMP and uric acid obtained. Patient had some relief from toradol given norco. has history of rheumatoid arthritis. is currently on Brilinta due to recent catheterization February 08. Patient is not having any catheter site pain, no signs of infection or psuedoaneurysm. Will not aspirate joint at this time due to currently taking anticoagulant. Spoke with Dr Millan about course of treatment and he agrees with pain management and follow up. Patient is diabetic and on anticoagulant, treatment is limited. Will be referred to orthopedics for further evaluation and treatment. Given pain mangement and wrapped with alondra bandage for compression. RICE. Aware of worsening signs and symptoms to watch out for. Follow up with PCP and orthopedics on Friday. - Diagnoses Differential Diagnosis/HQI/PQRI: Positive: Arthritis, DVT, Gout, Infection, Septic Arthritis, Sprain, Strain, Tendonitis, Tenosynovitis Provider Diagnoses: Joint effusion - Physician Notifications Discussed Care Of Patient With: Dr Millan Discharge - Discharge Plan Condition: Stable Disposition: HOME Prescriptions: oxyCODONE/Acetamin 5/325 MG* [Percocet 5/325 TAB*] 2 tab PO Q4H PRN #24 tab MDD 6 PRN Reason: Pain Patient Education Materials: Swollen Knee Joint (ED) Referrals: aCm Henderson MD [Primary Care Provider] - Greta Palacios MD [Medical Doctor] - Additional Instructions: Follow up and make an appointment with Orthopedics for further evaluation and treatment. Take pain medication as directed for pain. Elevate and ice knee. Rest. Return if you develop worsening pain, swelling, redness or fever/chills.
--- NOTE | 2017-02-22 14:57 | RAD ---
HISTORY: Right knee swelling, pain COMPARISONS: None VIEWS: 4, Frontal, lateral, axial, and oblique views of the right knee FINDINGS: BONE DENSITY: Normal. BONES: There is no displaced fracture. JOINTS: There is chondrocalcinosis. There is moderate tricompartmental osteoarthritis. There is a small suprapatellar joint effusion ALIGNMENT: There is no dislocation. SOFT TISSUES: Unremarkable. OTHER FINDINGS: None. IMPRESSION: 1. OSTEOARTHRITIS. 2. CHONDROCALCINOSIS. 3. JOINT EFFUSION. 4. NO ACUTE OSSEOUS INJURY. IF SYMPTOMS PERSIST, RECOMMEND REPEAT IMAGING.
[2017-02-22 15:10] LABS: Erythrocyte Sed Rate 59 mm/Hr (0-20)
--- NOTE | 2017-02-22 15:37 | RAD ---
HISTORY: Right leg pain and edema COMPARISONS: None relevant TECHNIQUE: Multiple transverse and longitudinal ultrasound images were obtained of the right lower extremity from the level of the common femoral vein inferiorly through to the infrapopliteal veins using grayscale, color Doppler, and spectral Doppler imaging with and without compression and with augmentation. Comparison images were obtained of the contralateral common femoral vein. FINDINGS: VEINS: The venous system of the right lower extremity is compressible throughout its course, with normal flow on color Doppler imaging and normal response to augmentation on spectral Doppler imaging. SOFT TISSUES: Unremarkable. OTHER FINDINGS: None. IMPRESSION: NO RIGHT LOWER EXTREMITY DEEP VEIN THROMBOSIS
[2017-02-22] MEDS ORDERED: HYDROcodone/ACETAMIN 5-325 MG* 1 TAB PO ONE (15:46)
[2017-02-22 17:21] VITALS: BP 119/65
== END 2017-02-22 16:55 | disposition home or self-care (01) ==
LOC: ED 13:15
DX: M25.461 Effusion, right knee (principal); F17.210 Nicotine dependence, cigarettes, uncomplicated
CPT/HCPCS: 36415; 80053; 83605; 84550; 85025; 85652; 86140; 96374; 99282; J1885

== ENCOUNTER 2017-03-12 16:30 | Emergency (ER) | payer MEDICARE ==
[2017-03-12 17:13] LABS: Hematocrit 46 % (42-52); Mean Corpuscular HGB Conc 33 g/dl (31-36); Mean Corpuscular Hemoglobin 28 pg (27-31); Mean Corpuscular Volume 84 fL (80-94); Mean Platelet Volume 10 um3 (7.4-10.4); Red Blood Count 5.45 10^6/ul (4.0-5.4); Red Cell Distribution Width 14 % (10.5-15); White Blood Count 9.6 10^3/ul (3.5-10.8)
--- NOTE | 2017-03-12 17:23 | RAD ---
HISTORY: Chest pain COMPARISONS: September 10, 2015 VIEWS:1: Single frontal portable view of the chest at 5:22 PM FINDINGS: LINES AND TUBES: None. CARDIOMEDIASTINAL SILHOUETTE: The cardiomediastinal silhouette is normal for portable technique. PLEURA: The costophrenic angles are sharp. No pleural abnormalities are noted. LUNG PARENCHYMA: The lungs are clear. ABDOMEN: The upper abdomen is clear. There is no subphrenic gas. BONES AND SOFT TISSUES: No bone or soft tissue abnormalities are noted. IMPRESSION: NO ACTIVE CARDIOPULMONARY DISEASE.
[2017-03-12 17:28] LABS: Albumin 3.7 g/dL (3.2-5.2); BUN/Creatinine Ratio 15.5 (8-20); Calcium 9.2 mg/dL (8.6-10.3); EGFR African American 149.8 (>60); EGFR Non-African American 116.5 (>60); Globulin 2.9 g/dL (2-4); Potassium 3.7 mmol/L (3.5-5.0); Total Bilirubin 0.4 mg/dL (0.2-1.0); Total Protein 6.6 g/dL (6.4-8.9)
[2017-03-12 17:30] LABS: Troponin I 0.01 ng/mL (<0.04)
--- NOTE | 2017-03-12 22:58 | ED ---
Adrienne Mcrae Alok, scribed for Lenny Govea MD on 03/12/17 at 1658 . HPI Chest Pain - HPI Summary HPI Summary: 51M presents to the ED for constant CP for the last 4 weeks, worsening over the last few days. Pt describes this CP as a pressure since his cardiac stent operation 4 weeks ago, which has worsened to a heaviness over the last 2 days. Pt states that his CP is aggravated by exertion and notes SOB and diaphoresis on exertion as well. Pt also notes left knee edema since 20 days ago. Pt denies nausea. PMHx includes previous TN one month ago, HTN, HLD and rheumatoid arthritis. Pt takes anti-coagulants brilinta and aspirin as well as metoprolol for HTN. Pt states that his HLD medications were increased a few weeks ago by his PCP. Pt smokes tobacco. - History of Current Complaint Chief Complaint: EDChestPainROMI Time Seen by Provider: 03/12/17 16:52 Hx Obtained From: Patient Onset/Duration: Started Weeks Ago, Atraumatic, Still Present, Worse Since - few days ago Timing: Constant Initial Severity: Moderate Current Severity: Moderate Pain Intensity: 7 Pain Scale Used: 0-10 Numeric Character: Heaviness, Pressure/Squeezing Aggravating Factor(s): Exertion Alleviating Factor(s): Nothing Associated Signs and Symptoms: Positive: Chest Pain, Shortness of Breath, Diaphoresis. Negative: Nausea - Additional Pertinent History Primary Care Physician: [id number] - Allergy/Home Medications Allergies/Adverse Reactions: Allergies Allergy/AdvReac Type Severity Reaction Status Date / Time Adhesive Tape Allergy Rash Verified 02/22/17 13:45 Latex Allergy Unknown Verified 02/22/17 13:45 Reaction Details Lisinopril AdvReac Abdominal Verified 02/22/17 13:45 Pain PMH/Surg Hx/FS Hx/Imm Hx Endocrine/Hematology History: Reports: Hx Anticoagulant Therapy - THIS VISIT, Hx Diabetes Denies: Hx Anemia, Hx Unexplained Bleeding Cardiovascular History: Reports: Hx Angioplasty - STENT X 2 THIS VISIT, Hx Hypercholesterolemia, Hx Hypertension Denies: Hx Aneurysm, Hx Angina, Hx Auto Implanted Cardiovert Defib, Hx Cardiac Arrest, Hx Cardiomegaly, Hx Congenital Heart Disease, Hx Congestive Heart Failure, Hx Coronary Artery Disease, Hx Deep Vein Thrombosis, Hx Embolism , Hx Hypotension, Hx Pacemaker/ICD, Hx Peripheral Vascular Disease, Hx Rheumatic Fever, Hx Syncope, Hx Valvular Heart Disease, Other Cardiovascular Problems/Disorders History: Denies: Hx Renal Disease Sensory History: Denies: Hx Contacts or Glasses, Hx Hearing Aid Opthamlomology History: Denies: Hx Contacts or Glasses - Surgical History Surgery Procedure, Year, and Place: ROTATOR CUFF REPAIR, COLONOSCOPY - Immunization History Date of Tetanus Vaccine: Unk Date of Influenza Vaccine: None Infectious Disease History: Yes Infectious Disease History: Denies: Traveled Outside the [place] in Last 30 Days - Family History Known Family History: Positive: Cardiac Disease, Diabetes - Social History Occupation: Disabled Lives: With Family Alcohol Use: None Substance Use Type: Reports: None Hx Tobacco Use: Yes Smoking Status (MU): Light Every Day Tobacco Smoker Type: Cigarettes Amount Used/How Often: 1 PPD Review of Systems Negative: Fever Positive: Chest Pain Positive: Shortness Of Breath Negative: Nausea Positive: Edema All Other Systems Reviewed And Are Negative: Yes Physical Exam Triage Information Reviewed: Yes Vital Signs On Initial Exam: Initial Vitals Temp Pulse Resp BP Pulse Ox 98.0 F 95 19 132/79 97 03/12/17 16:46 03/12/17 16:46 03/12/17 16:46 03/12/17 16:46 03/12/17 16:46 Vital Signs Reviewed: Yes Appearance: Positive: Well-Appearing, No Pain Distress Skin: Positive: Warm, Skin Color Reflects Adequate Perfusion, Dry Head/Face: Positive: Normal Head/Face Inspection Eyes: Positive: Normal ENT: Positive: Normal ENT inspection Neck: Positive: Supple, Nontender Respiratory/Lung Sounds: Positive: Clear to Auscultation, Breath Sounds Present Cardiovascular: Positive: RRR Abdomen Description: Positive: Nontender, Soft Bowel Sounds: Positive: Present Musculoskeletal: Positive: Normal Neurological: Positive: Normal Psychiatric: Positive: Normal, Affect/Mood Appropriate - [place] Coma Scale Coma Scale Total: 15 Diagnostics - Vital Signs Vital Signs Temp Pulse Resp BP Pulse Ox 03/12/17 16:46 98.0 F 95 19 132/79 97 - Laboratory Lab Results: Lab Results 03/12/17 03/12/17 03/12/17 Range/Units 16:55 16:55 16:55 WBC 9.6 (3.5-10.8) 10^3/ul RBC 5.45 H (4.0-5.4) 10^6/ul Hgb 15.0 (14.0-18.0) g/dl Hct 46 (42-52) % MCV 84 (80-94) fL MCH 28 (27-31) pg MCHC 33 (31-36) g/dl RDW 14 (10.5-15) % Plt Count 145 L (150-450) 10^3/ul MPV 10 (7.4-10.4) um3 Neut % (Auto) 64.8 (38-83) % Lymph % (Auto) 25.6 (25-47) % [place] % (Auto) 5.6 (1-9) % Eos % (Auto) 2.7 (0-6) % Baso % (Auto) 1.3 (0-2) % Absolute Neuts (auto) 6.2 (1.5-7.7) 10^3/ul Absolute Lymphs (auto) 2.5 (1.0-4.8) 10^3/ul Absolute Monos (auto) 0.5 (0-0.8) 10^3/ul Absolute Eos (auto) 0.3 (0-0.6) 10^3/ul Absolute Basos (auto) 0.1 (0-0.2) 10^3/ul Absolute Nucleated RBC 0 10^3/ul Nucleated RBC % 0 D-Dimer, Quantitative < 200 (Less Than 230) ng/mL Sodium 134 (133-145) mmol/L Potassium 3.7 (3.5-5.0) mmol/L Chloride 103 (101-111) mmol/L Carbon Dioxide 24 (22-32) mmol/L Anion Gap 7 (2-11) mmol/L BUN 11 (6-24) mg/dL Creatinine 0.71 (0.67-1.17) mg/dL Est GFR ( Amer) 149.8 (>60) Est GFR (Non-Af Amer) 116.5 (>60) BUN/Creatinine Ratio 15.5 (8-20) Glucose 268 H (70-100) mg/dL Lactic Acid (0.5-2.0) mmol/L Calcium 9.2 (8.6-10.3) mg/dL Total Bilirubin 0.40 (0.2-1.0) mg/dL AST 15 (13-39) U/L ALT 24 (7-52) U/L Alkaline Phosphatase 96 (34-104) U/L Troponin I 0.01 (<0.04) ng/mL B-Natriuretic Peptide ( - 100) pg/mL Total Protein 6.6 (6.4-8.9) g/dL Albumin 3.7 (3.2-5.2) g/dL Globulin 2.9 (2-4) g/dL Albumin/Globulin Ratio 1.3 (1-3) 03/12/17 03/12/17 03/12/17 Range/Units 16:55 16:55 20:28 WBC (3.5-10.8) 10^3/ul RBC (4.0-5.4) 10^6/ul Hgb (14.0-18.0) g/dl Hct (42-52) % MCV (80-94) fL MCH (27-31) pg MCHC (31-36) g/dl RDW (10.5-15) % Plt Count (150-450) 10^3/ul MPV (7.4-10.4) um3 Neut % (Auto) (38-83) % Lymph % (Auto) (25-47) % [place] % (Auto) (1-9) % Eos % (Auto) (0-6) % Baso % (Auto) (0-2) % Absolute Neuts (auto) (1.5-7.7) 10^3/ul Absolute Lymphs (auto) (1.0-4.8) 10^3/ul Absolute Monos (auto) (0-0.8) 10^3/ul Absolute Eos (auto) (0-0.6) 10^3/ul Absolute Basos (auto) (0-0.2) 10^3/ul Absolute Nucleated RBC 10^3/ul Nucleated RBC % D-Dimer, Quantitative (Less Than 230) ng/mL Sodium (133-145) mmol/L Potassium (3.5-5.0) mmol/L Chloride (101-111) mmol/L Carbon Dioxide (22-32) mmol/L Anion Gap (2-11) mmol/L BUN (6-24) mg/dL Creatinine (0.67-1.17) mg/dL Est GFR ( Amer) (>60) Est GFR (Non-Af Amer) (>60) BUN/Creatinine Ratio (8-20) Glucose (70-100) mg/dL Lactic Acid 1.0 (0.5-2.0) mmol/L Calcium (8.6-10.3) mg/dL Total Bilirubin (0.2-1.0) mg/dL AST (13-39) U/L ALT (7-52) U/L Alkaline Phosphatase (34-104) U/L Troponin I 0.03 (<0.04) ng/mL B-Natriuretic Peptide 133 H ( - 100) pg/mL Total Protein (6.4-8.9) g/dL Albumin (3.2-5.2) g/dL Globulin (2-4) g/dL Albumin/Globulin Ratio (1-3) Result Diagrams: 03/12/17 16:55 03/12/17 16:55 Lab Statement: Any lab studies that have been ordered have been reviewed, and results considered in the medical decision making process. - Radiology CXR Xray Interpretation: Positive (See Comments) - IMPRESSION: NO ACTIVE CARDIOPULMONARY DISEASE. Radiology Interpretation Completed By: Radiologist - EKG 1637 Cardiac Rate: Other Rate - 71 bpm EKG Interpretation: Old inferior TN. LBBB. Chest Pain Course/Dx - Course Course Of Treatment: Mr briseno has had chest symptoms for a month and they worsened 2 days ago. He is undergoing evaluation in the ED and awaiting a delayed troponin. I spoke with Dr. Estes and she agrees with the plan and is getting him set up with cardiac rehab. - Diagnoses Provider Diagnoses: Chest pain - Provider Notifications Discussed Care Of Patient With: Yessenia Estes - Recommends 2nd Trop test Time Discussed With Above Provider: 16:55 Discharge - Discharge Plan Condition: Stable Disposition: OTHER Discharge Disposition Comment: signed out to Dr. Ledbetter Patient Education Materials: Chest Pain (ED) Referrals: Cam Henderson MD [Primary Care Provider] - The documentation as recorded by the Adrienne nick Alok accurately reflects the service I personally performed and the decisions made by me, Lenny Govea MD.
[2017-03-13 00:11] VITALS: BP 134/85
== END 2017-03-13 00:18 ==
LOC: ED 16:30
DX: R07.89 Other chest pain (principal); R06.02 Shortness of breath; R61 Generalized hyperhidrosis; R60.0 Localized edema; E11.9 Type 2 diabetes mellitus without complications; Z95.5 Presence of coronary angioplasty implant and graft; I25.2 Old myocardial infarction; I45.2 Bifascicular block; Z79.01 Long term (current) use of anticoagulants; Z91.040 Latex allergy status; Z88.8 Allergy status to other drugs, medicaments and biological substances; Z91.048 Other nonmedicinal substance allergy status; F17.210 Nicotine dependence, cigarettes, uncomplicated
CPT/HCPCS: 36415; 71010; 80053; 83605; 83880; 84484; 85025; 85379; 93005; 99283